=== PATIENT | female | born 1950 | race Caucasian/White ===

== ENCOUNTER 2017-10-19 05:47 | Day surgery (SDC) | payer MEDICAID, MEDICARE ==
[2017-10-19] MEDS ORDERED: Dextrose 5%-Lactated Ringers 1,000 ML IV SCH (06:30)
[2017-10-19] MEDS ORDERED: Midazolam 1 MG/ML 2 ML SDV ONE (07:12)
[2017-10-19] MEDS ORDERED: Propofol 200 MG/20 ML SDV ONE (07:12)
[2017-10-19] MEDS ORDERED: fentaNYL 100 MCG/2 ML SDV ONE (07:12)
[2017-10-19] MEDS ORDERED: Glycopyrrolate 0.2 MG/ML 2 ML SYRINGE IVPUSH ONE (07:15)
[2017-10-19] MEDS ORDERED: Ondansetron 4 MG/2 ML SDV ONE (07:24)
[2017-10-19 09:26] VITALS: BP 114/65
--- NOTE | 2017-10-26 13:48 | OR ---
DATE OF PROCEDURE: 10/19/2017 PREOPERATIVE DIAGNOSIS: History of throat irritation and possibly reflux status post previous Alejo fundoplication. POSTOPERATIVE DIAGNOSES: 1. History of throat irritation and possibly related to reflux but otherwise intact Alejo fundoplication and no gross inflammation at esophagogastric junction. 2. Erosive antral gastritis. 3. Large amount of retained gastric bile. OPERATIVE PROCEDURE: Esophagogastroduodenoscopy with antral biopsies for CLOtest. ANESTHESIA: IV sedation. INDICATION FOR PROCEDURE: This is a 67-year-old status post Alejo fundoplication in 2016. Recently, she has had problems with throat irritation, and she thinks perhaps it is reflux. She presently is on Protonix just having started that in the last few days. Plan is to proceed with upper GI endoscopy with biopsies and/or dilation as indicated. Potential risks including bleeding and perforation were discussed, and the patient wishes to proceed. DETAILS OF PROCEDURE: The patient was taken to the operating room and placed in a left lateral decubitus position. IV sedation was administered, after which the upper GI endoscope was passed orally through the length of the esophagus and stomach with retroflexion view of the fundus, thereafter through the pyloric channel into the junction of the third and fourth portions of the duodenum. Findings included normal hypopharynx, larynx, and upper esophageal sphincter. No significant inflammation was seen at that level. The esophageal body was unremarkable with no dilation. At the EG junction, there was intact Alejo, which did easily open, but was not associated with any gross inflammation at esophagogastric junction. Within the stomach, retroflexion confirmed adequate appearing fundoplication effect. There was quite a bit in the way of retained bile which might be related to some impaired gastric emptying. Otherwise, there were scattered small erosions within the antrum. These were covered with fibrinous exudate and without bleeding. The visualized portions of the duodenum were unremarkable. At this point, biopsies were taken from the antrum and sent for CLOtest for H. pylori. Minimal bleeding from the biopsy site was seen and the procedure then concluded. The patient was taken to the recovery room in satisfactory condition. Plan will be to have the patient continue the present medications including the recently started Protonix and we will add Reglan 10 mg twice a day, once before breakfast and one at bedtime. We will see if can augment gastric emptying,. We will start with a lower dose of Reglan to minimize side effects. Otherwise, we will follow up with Dr. Tapia in [facility] on 11/07/2017. Audi Tapia MD /[id number]
== END 2017-10-19 09:50 | disposition home or self-care (01) ==
LOC: JP.SDS 05:47
PROVIDERS: ATTEND Surgery
DX: K29.50 Unspecified chronic gastritis without bleeding (principal); T18.2XXA Foreign body in stomach, initial encounter; K21.9 Gastro-esophageal reflux disease without esophagitis; Z88.2 Allergy status to sulfonamides; Z88.8 Allergy status to other drugs, medicaments and biological substances; Z98.890 Other specified postprocedural states
CPT/HCPCS: 43239; 87081; J2250; J2405; J2704; J3010; J7042

== ENCOUNTER 2020-12-10 09:42 | Day surgery (SDC) | payer MEDICARE ==
[~2020-12-10 09:42] MED LIST: Midazolam 1 MG/ML 2 ML SDV ONE; Propofol 200 MG/20 ML SDV ONE; fentaNYL 100 MCG/2 ML SDV ONE
[2020-12-10] MEDS ORDERED: Dextrose 5%-Lactated Ringers 1,000 ML IV SCH (10:30)
[2020-12-10 13:12] VITALS: BP 126/68; PULSE 52
--- NOTE | 2020-12-16 13:50 | OR ---
DATE OF PROCEDURE: 12/10/2020 SURGEON: Audi Tapia MD PREOPERATIVE DIAGNOSIS: Possible recurrent gastroesophageal reflux disease, status post previous Alejo fundoplication. POSTOPERATIVE DIAGNOSES: 1. Loosened but intact Alejo fundoplication with no gross inflammation at esophagogastric junction. 2. Mild antral gastritis. OPERATIVE PROCEDURE: Esophagogastroduodenoscopy with antral biopsies for CLOtest. ANESTHESIA: IV sedation. INDICATIONS FOR PROCEDURE: This is a 70-year-old status post Alejo fundoplication in 03/2017. Over the past few weeks, she has had some increasing problems with some heartburn and some dysphagia referable to the distal esophagus. She presently is on Protonix 40 mg a day. The plan is to proceed with upper GI endoscopy with biopsies as indicated. Potential risks including bleeding and perforation were discussed, and the patient wishes to proceed. DETAILS OF PROCEDURE: The patient was taken to the operating room and placed in a left lateral decubitus position. IV sedation was administered, after which the upper GI endoscope was passed orally through the length of the esophagus into the stomach with retroflexion view of the fundus, thereafter through the pyloric channel into the proximal duodenum. Findings included normal hypopharynx, larynx, upper esophageal sphincter, esophageal body. At the EG junction, the patient had a persistent Alejo fundoplication effect. This appeared to be somewhat loosened but was not associated with any significant gross inflammation of the esophagogastric junction. There is no stricturing or plaquing or other signs of neoplastic change. Within the stomach, retroflexion confirmed the presence of the fundoplication effect. There was some patchy redness in the antrum. Otherwise, remainder of the stomach and the visualized portions of the duodenum were unremarkable. At this point, biopsies were obtained and sent for the CLOtest from the antrum and the scope then withdrawn and the procedure concluded. At this point, we will give the patient trial of some Levsin 0.125 mg sublingual p.r.n. to see if that might help with some of the esophageal spasm type symptoms. Otherwise, we will see her back in 2 weeks to discuss what has happened in the interim and any additional treatment plan. Audi Tapia MD /[id number]
== END 2020-12-10 13:05 | disposition home or self-care (01) ==
LOC: JP.SDS 09:42
PROVIDERS: ATTEND Surgery
DX: K29.50 Unspecified chronic gastritis without bleeding (principal); Z88.2 Allergy status to sulfonamides; Z88.8 Allergy status to other drugs, medicaments and biological substances; Z98.890 Other specified postprocedural states
CPT/HCPCS: 43239; 87081; J2250; J2704; J3010; J7121

== ENCOUNTER 2022-07-06 07:41 | Day surgery (SDC) | payer MEDICARE ==
[2022-07-06] MEDS ORDERED: fentaNYL 100 MCG/2 ML SDV ONE ×2 (08:13→08:17)
[2022-07-06] MEDS ORDERED: Propofol 200 MG/20 ML SDV ONE ×2 (08:13→08:17)
[2022-07-06] MEDS ORDERED: Midazolam 1 MG/ML 2 ML SDV ONE ×2 (08:13→08:18)
[2022-07-06] MEDS ORDERED: Dextrose 5%-Lactated Ringers 1,000 ML IV SCH (08:30)
[2022-07-06 13:00] VITALS: BP 125/72; PULSE 60
== END 2022-07-06 13:02 | disposition home or self-care (01) ==
LOC: JP.SDS 07:41
PROVIDERS: ATTEND Surgery
DX: K57.30 Diverticulosis of large intestine without perforation or abscess without bleeding (principal); K21.9 Gastro-esophageal reflux disease without esophagitis; Z79.899 Other long term (current) drug therapy; Z91.040 Latex allergy status; Z88.2 Allergy status to sulfonamides; Z88.5 Allergy status to narcotic agent; Z88.8 Allergy status to other drugs, medicaments and biological substances
CPT/HCPCS: 87046; 87177; 87209; 87493; 87899; 88305; 89055; J2250; J2704; J3010; J7121

== ENCOUNTER 2024-11-06 15:17 | Emergency (ER) | payer MEDICARE ==
[2024-11-06 16:06] LABS: BASOPHILS PERCENT AUTO 0.1 % (0.1-1.3); EOSINOPHILS ABSOLUTE AUTO 0.04 K/uL (0.00-0.40); EOSINOPHILS PERCENT AUTO 0.3 % (0.0-5.4); HEMATOCRIT 37.7 % (34.3-46.0); HEMOGLOBIN 12.2 g/dL (11.2-15.5); IMMATURE GRAN ABSOLUTE AUTO 0.07 K/uL (0.00-0.23); IMMATURE GRAN PERCENT AUTO 0.6 % (0.0-0.7); LYMPHOCYTES ABSOLUTE AUTO 1.14 K/uL (0.8-3.3); LYMPHOCYTES PERCENT AUTO 9.7 % (11.4-47.7); MEAN CORPUSCULAR HEMOGLOBIN 30.8 pg (31.6-35.5); MEAN CORPUSCULAR HGB CONC 32.4 g/dL (31.6-35.5); MEAN CORPUSCULAR VOLUME 95.2 fL (81.4-99.0); MONOCYTES ABSOLUTE AUTO 0.36 K/uL (0.20-0.90); MONOCYTES PERCENT AUTO 3.1 % (3.3-12.6); NEUTROPHILS ABSOLUTE AUTO 10.17 K/uL (1.0-7.6); NEUTROPHILS PERCENT AUTO 86.2 % (40.0-78.1); PLATELET COUNT,PLT 278 K/uL (130-375); RED BLOOD CELL COUNT 3.96 M/uL (3.77-5.24); WHITE BLOOD CELL COUNT,WBC 11.8 K/uL (3.2-11.0)
[2024-11-06] MEDS: Aspirin 81 MG Tab.Chew PO ONE (16:09)
[2024-11-06 16:10] LABS: BASOPHILS ABSOLUTE AUTO 0.01 K/uL (0.00-0.10)
[2024-11-06 16:33] LABS: BLOOD UREA NITROGEN,BUN 23 mg/dL (7-18); CALCIUM 9.1 mg/dL (8.5-10.1); CARBON DIOXIDE,CO2 28 mmol/L (21-32); CHLORIDE,CL 100 mmol/L (100-108); ESTIMATED GFR 60 mL/min (>60); GLUCOSE RANDOM 146 mg/dL (74-106); POTASSIUM,K 4.6 mmol/L (3.6-5.2); SODIUM,NA 135 mmol/L (140-148); TROPONIN I HIGH SENSITIVITY 7.6 pg/mL (<=60.3)
[2024-11-06 16:34] LABS: ANION GAP 11.6 mmol/L (5.0-14.0)
[2024-11-06] MEDS: Alum Hydrox/Mag Hydrox/Simeth 15 ML, Lidocaine 2% 15 ML PO ONE (17:27)
[2024-11-06 18:41] VITALS: BP 163/84; PULSE 54
== END 2024-11-06 18:47 | disposition home or self-care (01) ==
LOC: JP.ED 15:17
DX: R07.9 Chest pain, unspecified (principal); Z91.040 Latex allergy status; Z88.2 Allergy status to sulfonamides; Z88.8 Allergy status to other drugs, medicaments and biological substances; Z79.82 Long term (current) use of aspirin; Z79.899 Other long term (current) drug therapy
CPT/HCPCS: 36415; 71046; 80048; 84145; 84484; 85025; 93005; 99285; A9270-GY

== ENCOUNTER 2024-11-24 07:36 | Day surgery (SDC) | payer MEDICARE ==
[2024-11-24] MEDS ORDERED: Propofol 200 MG/20 ML SDV ONE (08:18)
[2024-11-24] MEDS ORDERED: fentaNYL 100 MCG/2 ML SDV ONE (08:18)
[2024-11-24] MEDS: Lactated Ringers 1,000 ML IV SCH (08:19)
[2024-11-24] MEDS ORDERED: Ondansetron 4 MG/2 ML SDV ONE (09:27)
[2024-11-24 10:25] VITALS: BP 126/87; PULSE 84
== END 2024-11-24 10:47 | disposition home or self-care (01) ==
LOC: JP.SDS 07:36
PROVIDERS: ATTEND Surgery
DX: R13.10 Dysphagia, unspecified (principal); K22.89 Other specified disease of esophagus; K44.9 Diaphragmatic hernia without obstruction or gangrene; K21.9 Gastro-esophageal reflux disease without esophagitis; N18.30 Chronic kidney disease, stage 3 unspecified
CPT/HCPCS: 43239; 88305; J2405; J2704; J3010; J7120; 00731-QZ

== ENCOUNTER 2025-02-06 00:08 | Emergency (ER) | payer MEDICARE ==
[2025-02-06] MEDS: diphenhydrAMINE 25 MG Cap PO ONE (00:22)
[2025-02-06] MEDS: methylPREDNISolone Sodium Succinate 125 MG/2 ML SDV IM ONE (00:24)
[2025-02-06 00:28] VITALS: BP 139/65; PULSE 66
== END 2025-02-06 02:26 | disposition home or self-care (01) ==
LOC: JP.ED 00:08
DX: R09.89 Other specified symptoms and signs involving the circulatory and respiratory systems (principal); R06.02 Shortness of breath; T42.6X5A Adverse effect of other antiepileptic and sedative-hypnotic drugs, initial encounter; E66.9 Obesity, unspecified; Z88.2 Allergy status to sulfonamides; Z88.8 Allergy status to other drugs, medicaments and biological substances; Z91.040 Latex allergy status; Z79.82 Long term (current) use of aspirin; Z90.710 Acquired absence of both cervix and uterus; Z79.899 Other long term (current) drug therapy; Z90.49 Acquired absence of other specified parts of digestive tract; Z68.30 Body mass index [BMI] 30.0-30.9, adult
CPT/HCPCS: 96372; 99284; A9270; J2919